=== PATIENT | female | born 1980 | race Caucasian/White ===

== ENCOUNTER 2019-04-11 08:23 | Emergency (ER) | payer MEDICAID ==
[~2019-04-11] VITALS: Ht 162.6 cm; Wt 90.7 kg
[2019-04-11 08:23] VITALS: BP 145/93
[2019-04-11] MEDS ORDERED: levETIRAcetam 1,000 MG in NACL 0.9% 100 ML IV ONE (08:50)
[2019-04-11] MEDS ORDERED: ACYCLOVIR 200 MG CAP PO ONE (11:25)
[2019-04-11] MEDS ORDERED: ACYCLOVIR 800 MG TAB PO SCH (11:45)
[2019-04-11 17:20] VITALS: BP 128/80
== END 2019-04-11 17:20 | disposition home or self-care (01) ==
LOC: MED 08:23
DX: G40.909 Epilepsy, unspecified, not intractable, without status epilepticus (principal); E11.9 Type 2 diabetes mellitus without complications; I10 Essential (primary) hypertension; E07.9 Disorder of thyroid, unspecified; Z98.890 Other specified postprocedural states
CPT/HCPCS: 82948; 96365; 99283; J1953